=== PATIENT | male | born 1975 | race Caucasian/White ===

== ENCOUNTER 2016-07-22 12:22 | Emergency (ER) | payer OTHER ==
[~2016-07-22] VITALS: Ht 167.6 cm; Wt 60.8 kg
[~2016-07-22 12:22] MED LIST: ADV250/50 INH; ALENDRONATE SOD70 M2 PO; ATIVAN1 MG PO; ATIVAN2 MG PO; BUPROPION HCL150 M1 PO; CIPRO500 MG PO; CLINDAMYCIN HC300 MG PO; COL100 PO; COLACE100 MG PO; COUMADIN10 MG PO; COUMADIN2.5 MG PO; COUMADIN4 MG PO; COUMADIN5 MG PO; COUMADIN7.5 MG PO; DIL100 PO; DILANTIN100 MG PO; FLE10 PO; GABAPENTIN400 M1 PO; GABAPENTIN600 M1 PO; HYDROCHLOROTH12.5 M2 PO; IMO2 PO; INS5050 SC; INSR SC; INSULIN HUMA100 U/M1 SC; LAC PO; LANTI SC; LANTUS SOLOS100 U/M1 SC; LANTUS SOLOS100 U/M1 SQ; LEVAQUIN500 MG PO; LEVAQUIN750 MG PO; LEVEMIR FLEX100 U/ML SC; LORAZEPAM2 MG PO; MEN'S MULTIVITA1 TAB PO; METOPROLOL SUCC50 M2 PO; NEURONTIN600 MG PO; NIC21 TD; NOR10T PO; NORCO1 TA2 PO; OMEPRAZOLE DR20 M1 PO; OXY20 PO; PER5 PO; PRILOSEC20 MG PO; PRINIVIL10 MG PO; PROVENTIL0.09 MG/A1 INH; PULMICORT180 MCG/Ac INH; REGLAN10 MG PO; SIMVASTATIN20 M1 PO; TRAMADOL HCL50 MG PO; VIAGRA50 MG PO; ZESTRIL20 MG PO; ZOCOR20 MG PO
[2016-07-22 14:00] VITALS: BP 118/54
[2016-07-22 14:19] LABS: BASOPHIL % 0.5 % (0-2); RED CELL DISTRIBUTION WIDTH 13.7 % (11.5-14.5)
[2016-07-22 14:23] LABS: CALCIUM 9.4 mg/dL (8.5-10.1); CARBON DIOXIDE 30.9 mmol/L (21-32); CHLORIDE SERUM 98 mmol/L (98-107); CREATININE SERUM 0.9 mg/dL (0.7-1.3); GFR1 > 60 mL/min; GLUCOSE SERUM 334 mg/dL (74-106); POTASSIUM SERUM 4.9 mmol/L (3.5-5.1); SODIUM SERUM 135 mmol/L (136-145)
[2016-07-22 14:24] LABS: PLATELET COUNT 407 x10^3mcL (130-400)
[2016-07-22 14:27] LABS: ALBUMIN 3.9 g/dL (3.4-5.0); ALKALINE PHOSPHATASE 95 U/L (46-116); ALT/SGPT 34 U/L (16-63); AMYLASE 29 U/L (25-115); AST/SGOT 9 U/L (15-37); BILIRUBIN TOTAL 0.3 mg/dL (0.20-1.00); LIPASE 75 IU/L (73-393); TOTAL PROTEIN, SERUM 6.9 g/dL (6.4-8.2)
== END 2016-07-22 14:00 | disposition home or self-care (01) ==
LOC: ED 12:22
PROVIDERS: Emergency Medicine
DX: R07.9 Chest pain, unspecified (principal); J98.01 Acute bronchospasm; E11.9 Type 2 diabetes mellitus without complications; I10 Essential (primary) hypertension; E78.00 Pure hypercholesterolemia, unspecified; G40.909 Epilepsy, unspecified, not intractable, without status epilepticus; F17.210 Nicotine dependence, cigarettes, uncomplicated; Z71.6 Tobacco abuse counseling; Z88.5 Allergy status to narcotic agent
CPT/HCPCS: 80307; 85378; 99406; G0480

== ENCOUNTER 2016-08-07 07:24 | Inpatient (IN) | payer OTHER ==
[~2016-08-07] VITALS: Ht 167.6 cm; Wt 56.4 kg
[2016-08-07 07:52] LABS: microscopic required? NO
[2016-08-07 08:05] LABS: UA SPECIFIC GRAVITY 1.015 (1.005-1.035); urine erythrocyte NEGATIVE (NEGATIVE)
[2016-08-07 08:09] LABS: CALCIUM 9.4 mg/dL (8.5-10.1); CARBON DIOXIDE 17.8 mmol/L (21-32); CHLORIDE SERUM 94 mmol/L (98-107); GFR1 > 60 mL/min; GLUCOSE SERUM 443 mg/dL (74-106); SODIUM SERUM 129 mmol/L (136-145)
[2016-08-07 08:21] LABS: POTASSIUM SERUM 5.6 mmol/L (3.5-5.1)
[2016-08-07 08:27] LABS: ALBUMIN 4.5 g/dL (3.4-5.0); BILIRUBIN DIRECT 0.08 mg/dL (0.0-0.2); BILIRUBIN TOTAL 0.52 mg/dL (0.20-1.00); TOTAL PROTEIN, SERUM 7.6 g/dL (6.4-8.2)
[2016-08-07 08:29] LABS: PLATELET COUNT 296 x10^3mcL (130-400); RED CELL DISTRIBUTION WIDTH 13.8 % (11.5-14.5)
[2016-08-07 10:00] LABS: T3 TOTAL 1.02 ng/mL
[2016-08-07 10:01] LABS: FREE T4 0.99 ng/dL (0.76-1.46); FREE THYROXINE INDEX 3.1 ug/dL (1.4-4.5); T4(THYROXINE) 8.6 ug/dL (4.7-13.3)
[2016-08-07 10:21] LABS: CHOLESTEROL/HDL RATIO 3.7
[2016-08-07 10:25] LABS: BAND NEUTROPHIL 5 % (0-10); SEGMENTED NEUTROPHILS 94 % (37-75); rbc morphology (normal/abnorm) NORMAL (NORMAL)
[2016-08-07 10:26] LABS: PLATELET MORPHOLOGY PLATELETS INCREASED
[2016-08-07 10:29] VITALS: BP 112/65
[2016-08-07 10:30] LABS: AMPHETAMINE QUAL UR NONE DETECTED (NEG <=1000)
[2016-08-07 12:14] LABS: CALCIUM 8.3 mg/dL (8.5-10.1); CARBON DIOXIDE 28.4 mmol/L (21-32); CHLORIDE SERUM 104 mmol/L (98-107); CREATININE SERUM 1.1 mg/dL (0.7-1.3); GFR1 > 60 mL/min; GLUCOSE SERUM 118 mg/dL (74-106); POTASSIUM SERUM 4.8 mmol/L (3.5-5.1); SODIUM SERUM 140 mmol/L (136-145)
[2016-08-07 12:24] LABS: MAGNESIUM 1.5 mg/dL (1.8-2.4); PHOSPHOROUS 3.1 mg/dL (2.5-4.9)
[2016-08-07 15:05] VITALS: BP 111/64
[2016-08-07 16:49] LABS: CALCIUM 7.3 mg/dL (8.5-10.1); CARBON DIOXIDE 26.4 mmol/L (21-32); CHLORIDE SERUM 105 mmol/L (98-107); CREATININE SERUM 0.8 mg/dL (0.7-1.3); GFR1 > 60 mL/min; GLUCOSE SERUM 205 mg/dL (74-106); POTASSIUM SERUM 4.1 mmol/L (3.5-5.1); SODIUM SERUM 138 mmol/L (136-145)
[2016-08-07 18:12] LABS: MAGNESIUM 1.3 mg/dL (1.8-2.4); PHOSPHOROUS 2.8 mg/dL (2.5-4.9)
[2016-08-07 20:00] VITALS: BP 101/61
[2016-08-08 00:09] VITALS: BP 102/58
[2016-08-08 04:20] VITALS: BP 109/61
[2016-08-08 05:37] LABS: BASOPHIL % 0.4 % (0-2); PLATELET COUNT 247 x10^3mcL (130-400); RED CELL DISTRIBUTION WIDTH 13.9 % (11.5-14.5)
[2016-08-08 05:58] LABS: CALCIUM 7.2 mg/dL (8.5-10.1); CARBON DIOXIDE 26.5 mmol/L (21-32); CHLORIDE SERUM 110 mmol/L (98-107); CREATININE SERUM 0.7 mg/dL (0.7-1.3); GFR1 > 60 mL/min; GLUCOSE SERUM 142 mg/dL (74-106); MAGNESIUM 1.7 mg/dL (1.8-2.4); PHOSPHOROUS 2.8 mg/dL (2.5-4.9); POTASSIUM SERUM 4.3 mmol/L (3.5-5.1); SODIUM SERUM 143 mmol/L (136-145)
[2016-08-08 10:44] VITALS: BP 102/64
[2016-08-08 15:20] VITALS: BP 105/64
[2016-08-08 17:40] VITALS: BP 125/79
[2016-08-08 21:21] VITALS: BP 141/79
[2016-08-09 05:32] VITALS: BP 144/86
[2016-08-09 06:19] LABS: BASOPHIL % 0.4 % (0-2); PLATELET COUNT 238 x10^3mcL (130-400)
[2016-08-09 06:41] LABS: CALCIUM 7.4 mg/dL (8.5-10.1); CARBON DIOXIDE 27.4 mmol/L (21-32); CHLORIDE SERUM 111 mmol/L (98-107); CREATININE SERUM 0.5 mg/dL (0.7-1.3); GFR1 > 60 mL/min; GLUCOSE SERUM 70 mg/dL (74-106); MAGNESIUM 1.7 mg/dL (1.8-2.4); PHOSPHOROUS 2.8 mg/dL (2.5-4.9); POTASSIUM SERUM 3.7 mmol/L (3.5-5.1); SODIUM SERUM 145 mmol/L (136-145)
[2016-08-09 09:09] VITALS: BP 141/84
[2016-08-09] MEDS ORDERED: ALENDRONATE SOD70 M2 PO (11:31)
[2016-08-09] MEDS ORDERED: ZESTRIL20 MG PO (11:36)
[2016-08-09] MEDS ORDERED: COUMADIN5 MG PO (11:37)
[2016-08-09] MEDS ORDERED: PRILOSEC OTC20 M1 PO (11:39)
[2016-08-09] MEDS ORDERED: HYDROCHLOROTH12.5 M2 PO (11:39)
[2016-08-09] MEDS ORDERED: NEURONTIN600 MG PO (11:40)
[2016-08-09] MEDS ORDERED: LORAZEPAM2 MG PO (11:40)
[2016-08-09 13:12] VITALS: BP 125/77
[2016-08-09] MEDS ORDERED: INSR SC (13:14)
[2016-08-09 13:16] VITALS: BP 125/77
== END 2016-08-09 14:34 | disposition home or self-care (01) | DRG 420 ==
LOC: ED 07:24 → IC 09:07 → DU 08-08 10:38
PROVIDERS: Emergency Medicine; ADMIT Family Medicine
PROC: 05HM33Z Insertion of Infusion Device into Right Internal Jugular Vein, Percutaneous Approach (ICD-10-PCS; principal; 2016-08-07)
DX: E13.10 Other specified diabetes mellitus with ketoacidosis without coma (principal); E87.8 Other disorders of electrolyte and fluid balance, not elsewhere classified; Z89.611 Acquired absence of right leg above knee; E83.42 Hypomagnesemia; E87.1 Hypo-osmolality and hyponatremia; E87.5 Hyperkalemia; J44.9 Chronic obstructive pulmonary disease, unspecified; K21.9 Gastro-esophageal reflux disease without esophagitis; E78.2 Mixed hyperlipidemia; G40.909 Epilepsy, unspecified, not intractable, without status epilepticus; Z96.641 Presence of right artificial hip joint; F17.210 Nicotine dependence, cigarettes, uncomplicated; Z89.512 Acquired absence of left leg below knee; Z79.01 Long term (current) use of anticoagulants; Z91.14 Patient's other noncompliance with medication regimen; Z86.718 Personal history of other venous thrombosis and embolism; K52.9 Noninfective gastroenteritis and colitis, unspecified; E11.21 Type 2 diabetes mellitus with diabetic nephropathy; E11.51 Type 2 diabetes mellitus with diabetic peripheral angiopathy without gangrene
CPT/HCPCS: 36556; 36600; 80307; 82962; 83880; 84439; 90732; J1170; J1642; J1815; J1885; J2060; J2270; J2405; J3475; J3490; J7030; J7613; Q0092

== ENCOUNTER 2017-11-25 08:37 | Emergency (ER) | payer OTHER ==
[~2017-11-25] VITALS: Ht 170.2 cm; Wt 59.4 kg
[~2017-11-25 08:37] MED LIST changes: +PRILOSEC OTC20 M1 PO
[2017-11-25 08:52] VITALS: BP 127/76; Ht 170.2 cm; Wt 59.4 kg
== END 2017-11-25 09:33 | disposition home or self-care (01) ==
LOC: ED 08:37
DX: S05.02XA Injury of conjunctiva and corneal abrasion without foreign body, left eye, initial encounter (principal); J44.9 Chronic obstructive pulmonary disease, unspecified; I10 Essential (primary) hypertension; Z86.73 Personal history of transient ischemic attack (TIA), and cerebral infarction without residual deficits; E11.9 Type 2 diabetes mellitus without complications; E78.00 Pure hypercholesterolemia, unspecified; Z88.1 Allergy status to other antibiotic agents; X58.XXXA Exposure to other specified factors, initial encounter; Y93.89 Activity, other specified; Y92.89 Other specified places as the place of occurrence of the external cause; Y99.8 Other external cause status

== ENCOUNTER 2017-12-15 19:55 | Emergency (ER) | payer OTHER ==
[~2017-12-15] VITALS: Ht 170.2 cm; Wt 59.4 kg
[2017-12-15 20:04] VITALS: Ht 170.2 cm; Wt 59.4 kg
[2017-12-15 22:25] VITALS: BP 111/67
== END 2017-12-15 22:25 | disposition home or self-care (01) ==
LOC: ED 19:55
DX: S70.01XA Contusion of right hip, initial encounter (principal); J44.9 Chronic obstructive pulmonary disease, unspecified; I10 Essential (primary) hypertension; E11.9 Type 2 diabetes mellitus without complications; E78.00 Pure hypercholesterolemia, unspecified; Z86.73 Personal history of transient ischemic attack (TIA), and cerebral infarction without residual deficits; Z86.69 Personal history of other diseases of the nervous system and sense organs; Z88.1 Allergy status to other antibiotic agents; W01.0XXA Fall on same level from slipping, tripping and stumbling without subsequent striking against object, initial encounter; Y93.89 Activity, other specified; Y92.096 Garden or yard of other non-institutional residence as the place of occurrence of the external cause; Y99.8 Other external cause status
CPT/HCPCS: 82962; J1885

== ENCOUNTER 2018-11-29 14:12 | Emergency (ER) | payer OTHER ==
[2018-11-29 14:24] VITALS: BP 114/60
== END 2018-11-29 17:31 | disposition home or self-care (01) ==
LOC: ED 14:12
DX: S61.200A Unspecified open wound of right index finger without damage to nail, initial encounter (principal); X58.XXXA Exposure to other specified factors, initial encounter; Y93.89 Activity, other specified; Y92.89 Other specified places as the place of occurrence of the external cause; Y99.8 Other external cause status
CPT/HCPCS: J2001

== ENCOUNTER 2018-12-24 20:30 | Inpatient (IN) | payer OTHER ==
[~2018-12-24] VITALS: Ht 175.3 cm; Wt 51.1 kg
[2018-12-24 20:37] VITALS: Ht 175.3 cm; Wt 51.1 kg
--- NOTE | 2018-12-24 20:37 | NUR ---
PT BROUGHT TO ED BY [facility]. PT IS AAOX4, RESP E/U, TACHYPNIC RR 24. PT IS VOICING GENERALIZED DISCOMFORT AND BILATERAL SHOULDER PAIN. PT C/O EXCESSIVE THIRST, GEN BODY ACHES, LOSS OF APPETITE, N/V/D X2 DAYS. EDIC REPORTS FROM HOME HAS HAD SYMPTOMS OF V/D/N WITH GEN BODY ACHES X2 DAYS. PT HAS HX DM WITH BLE AMPUTATIONS (RIGHT AKA AND LEFT BKA). PT STOPPED TAKING INSULIN X2 DAYS (REGULAR AND LANTUS, UNKNOWN DOSAGES) DUE TO LACK OF APPETITE. UPON BS ASSESSMENT AT HOME YESTERDAY BS 200'S. EN ROUTE BS PER MEDIC 500. PT GIVEN ZOFRAN 4MG EN ROUTE. PT CONNECTED TO MONITOR. DR Lee AT BEDSIDE FOR MSE.
--- NOTE | 2018-12-24 20:40 | NUR ---
PT HAD VOMITING EPISODE X1. APPROX 25CC. NO BLOOD NOTED.
--- NOTE | 2018-12-24 21:07 | NUR ---
PT ATTEMPTING TO VOID X2. UNABLE TO. DENIES PAIN. WILL NOTIFY DR Thompson
--- NOTE | 2018-12-24 21:07 | NUR ---
LAB AT BEDSIDE.
--- NOTE | 2018-12-24 21:19 | NUR ---
PT CALM AND COOPERATIVE AT THIS TIME. NO LONGER SHOUTING "I AM IN PAIN, IT HURTS, I NEED MEDICATION. MY SHOULDER HURTS. WHY DO YOU KEEP ASKING ME QUESTIONS?" DR Rosa SETHI.
[2018-12-24 21:37] LABS: PLATELET COUNT 360 x10^3mcL (130-400); RED CELL DISTRIBUTION WIDTH 13.4 % (11.5-14.5)
[2018-12-24 22:03] LABS: ALBUMIN 3.6 g/dL (3.4-5.0); BILIRUBIN TOTAL 0.44 mg/dL (0.20-1.00); CALCIUM 8.4 mg/dL (8.5-10.1); CREATININE SERUM 1.4 mg/dL (0.7-1.3); TOTAL PROTEIN, SERUM 6.6 g/dL (6.4-8.2)
[2018-12-24 22:06] LABS: CARBON DIOXIDE 7.8 mmol/L (21-32); POTASSIUM SERUM 5.8 mmol/L (3.5-5.1)
[2018-12-24 22:07] LABS: BAND NEUTROPHIL 12 % (0-10); BASOPHIL 0 % (0-2); MONOCYTE 1 % (0-7); SEGMENTED NEUTROPHILS 75 % (37-75); rbc morphology (normal/abnorm) ABNORMAL (NORMAL)
[2018-12-24 22:08] LABS: PLATELET MORPHOLOGY LARGE PLATELET SEEN
--- NOTE | 2018-12-24 22:17 | NUR ---
PT SELF REMOVED IV TO RIGHT WRIST AT THIS TIME. PT ADVISED IMPORTANCE OF IV SITE. WILL PLACE NEW IV.
--- NOTE | 2018-12-24 22:50 | NUR ---
MULTIPLE ATTEMPTS OF PERPHIRAL IV ACCESS, NO ACCESS OBTAINED. PT STS "THEY USUALLY GIVE ME A C-LINE, BECAUSE MY VEINS ARE SO BAD." DR Lee AWARE. JOSEPH RN AT BEDSIDE TO ASSESS FOR POSSIBLE EJ PLACEMENT. PT HAD VOMITING EPISODE OF APPROX 200CC.
--- NOTE | 2018-12-24 22:53 | NUR ---
PT GIVEN 4MG REGLAN IM AND 4MG MORPHINE IM AT THIS TIME PER DR Lee VERBAL ORDER.
--- NOTE | 2018-12-24 22:54 | NUR ---
JOSEPH RN VERBALIZES NO SAFE PLACEMENT FOR EJ AT THIS TIME. DR Rosa SETHI.
--- NOTE | 2018-12-24 23:01 | NUR ---
DR Lee AT BEDSIDE FOR US GUIDED PIV PLACEMENT.
--- NOTE | 2018-12-24 23:24 | NUR ---
POC GLUCOSE 479.
--- NOTE | 2018-12-24 23:25 | NUR ---
IV ZOFRAN NOT COMPATIBLE WITH IV REGULAR INSULIN. 1 PIV SITE TO RAC AT THIS TIME. DR Lee AWARE. GIVEN ORDER TO INFUSE ZOSYN FIRST AND THEN TO BEGIN INSULIN GTT.
--- NOTE | 2018-12-24 23:36 | NUR ---
PHARMACY CONTACTED AT THIS TIME REGARDING IV VANCO. PHARMACIST TO BRING MEDICATION TO NURSING STATION.
[2018-12-24 23:42] LABS: CHOLESTEROL/HDL RATIO 3.2
[2018-12-24 23:52] LABS: microscopic required? NO
[2018-12-24 23:58] LABS: urine erythrocyte NEGATIVE (NEGATIVE)
[2018-12-25 00:07] LABS: AMPHETAMINE QUAL UR NONE DETECTED (See below)
--- NOTE | 2018-12-25 00:14 | NUR ---
DR Lee AT BEDSIDE FOR US GUIDED PIV PLACEMENT.
--- NOTE | 2018-12-25 00:30 | NUR ---
INSULIN GTT STARTED AT THIS TIME AT 7U/HR ORDERED. SEE EMAR. VERIFIED WITH NASIM LOZANO.
--- NOTE | 2018-12-25 00:47 | NUR ---
REPORT CALLED AND GIVEN TO NASIM VILLALOBOS. PT TO GO TO ICU BED 1.
--- NOTE | 2018-12-25 01:06 | NUR ---
PT EN ROUTE TO ICU AT THIS TIME.
--- NOTE | 2018-12-25 01:10 | NUR ---
RECEIVED PT FROM ER VIA GURNEY ACCOMPANIED BY RN AND EMT. PT TRANSFERRED TO ICU BED 1 WITH NO COMPLICATIONS. PT IS A/OX4. SPEECH IS CLEAR. ABLE TO MAKE NEEDS KNOWN. DENIES ANAYA. PUPILS WITH BRISK REACTION TO LIGHT, 3 MM BILAT. EENT FREE OF DISCHAREG. ORAL MUCOSA PINK AND MOIST. NO JVD NOTED. TRACHEA MIDLINE. PT'S BREATHING IS E/U ON RA. LUNGS SOUND CLEAR BILAT. SYMMETRICAL CHEST EXPANSION NOTED. S1/S2 HEART SOUNDS AUSCULTATED. CHEST WALL EQUAL AND SYMMETRICAL. DENIES ANY CP/DIZZINESS. HR 125, BP 131/72, MAP 91, RR 18, SPO2 99%. MOD PULSES NOTED TO BUE. CAP REFILL < 3 SECS. SKIN IS WARM AND DRY. NO EDEMA NOTED. RAC AND EDMAR IV IN PLACE WITH NO S/S OF INFILTRATION NOTED. RECEIVED PT INFUSING NS @ 250 ML/HR, VANCO INFUSING @ 166 ML/HR AND INSULIN GTT @ 7 UNITS/HR. INSULIN GTT CHANGED AT THIS TIME TO 0.1 UNITS/KG/HR PER DKA PROTOCOL. GENERALIZED WEAKNESS. PT NOTED WITH RIGHT AKA AND L BKA. NO JOINT SWELLING/DEFORMITY NOTED. ACTIVE FULL ROM. PT USES A WHEELCHAIR AT BASELINE. ABD IS SOFT, FLAT, NONTENDER TO PALPATION. BOWEL SOUNDS ACTIVE X4 QUADRANTS. PT STS HE HAD A LOOSE BROWN BM YESTERDAY. PT C/O ACHING 8/10 ABD PAIN. PT VOIDS FREELY VIA URINAL, YELLOW COLORED URINE. NO SCROTAL EDEMA OR PENILE DISCHARGE NOTED. SKIN IS INTACT. PT ABLE TO REPOSITION SELF INDEPENDENTLY. PT ORIENTED TO ROOM AND USE OF CALL LIGHT. BED IN LOW POSITION. CALL LIGHT IN REACH. WILL CONT TO MONITOR
[2018-12-25 01:21] LABS: CALCIUM 7.1 mg/dL (8.5-10.1); CARBON DIOXIDE 10.1 mmol/L (21-32); CHLORIDE SERUM 101 mmol/L (98-107); CREATININE SERUM 1.3 mg/dL (0.7-1.3); GFR1 > 60 mL/min; MAGNESIUM 1.3 mg/dL (1.8-2.4); PHOSPHOROUS 4.2 mg/dL (2.5-4.9); SODIUM SERUM 136 mmol/L (136-145)
[2018-12-25 01:23] LABS: GLUCOSE SERUM 497 mg/dL (74-106); POTASSIUM SERUM 6.4 mmol/L (3.5-5.1)
--- NOTE | 2018-12-25 01:27 | NUR ---
PT C/O ACHING ABD PAIN RATED 8/10. PT MEDICATED WITH NORCO PER EMAR.
[2018-12-25 01:29] VITALS: BP 131/72
--- NOTE | 2018-12-25 01:30 | NUR ---
DR. MAI MADE AWARE OF CRITICAL LAB RESULT: POTASSIUM 6.4 AND GLUCOSE 497.
--- NOTE | 2018-12-25 02:16 | NUR ---
DR. MAI AT BEDSIDE. UPDATED ON PT'S CURRENT STATUS
--- NOTE | 2018-12-25 02:39 | NUR ---
CNC SPECIALIST AT BEDSIDE FOR LACTIC BLOOD DRAW
[2018-12-25 03:10] VITALS: BP 109/63
[2018-12-25 04:22] LABS: PLATELET COUNT 348 x10^3mcL (130-400); RED CELL DISTRIBUTION WIDTH 13.1 % (11.5-14.5)
[2018-12-25 04:32] LABS: CALCIUM 6.7 mg/dL (8.5-10.1); CARBON DIOXIDE 17.9 mmol/L (21-32); CHLORIDE SERUM 107 mmol/L (98-107); CREATININE SERUM 1.1 mg/dL (0.7-1.3); GFR1 > 60 mL/min; GLUCOSE SERUM 300 mg/dL (74-106); MAGNESIUM 2.3 mg/dL (1.8-2.4); PHOSPHOROUS 2.8 mg/dL (2.5-4.9); POTASSIUM SERUM 4.5 mmol/L (3.5-5.1); SODIUM SERUM 138 mmol/L (136-145)
--- NOTE | 2018-12-25 04:54 | NUR ---
PT C/O ACHING ABD PAIN RATED 9/10. PT MEDICATED WITH MORPHINE PER EMAR.
[2018-12-25 05:24] LABS: BAND NEUTROPHIL 12 % (0-10); MONOCYTE 1 % (0-7); SEGMENTED NEUTROPHILS 75 % (37-75); rbc morphology (normal/abnorm) ABNORMAL (NORMAL)
[2018-12-25 05:25] LABS: PLATELET MORPHOLOGY PLATELETS NORMAL
--- NOTE | 2018-12-25 05:30 | NUR ---
PT TRANSFERRED TO CT SCAN AT THIS TIME ACCOMPANIED BY DARIO ROUSE AND X-RAY TECH. PT CONNECTED TO FULL HEAD CHARRER AND CONT PULSE OX
--- NOTE | 2018-12-25 05:45 | NUR ---
PT RETURNED FROM CT SCAN AT THIS TIME. NO S/S OF ACUTE DISTRESS NOTED. PT RECONNECTED TO FULL CHIEF ESTIMATOR AND CONT PULSE OX. WILL CONT TO MONITOR
--- NOTE | 2018-12-25 07:01 | NUR ---
BS 191. NS TURNED OFF AT THIS TIME. D5 1/2 NS INITIATED AT THIS TIME @ 150 ML/HR. INSULIN GTT TITRATED TO 0.05 UNITS/KG/HR.
--- NOTE | 2018-12-25 07:10 | NUR ---
REPORT GIVEN TO AGENCY NASIM SERRANO. ALL QUESTIONS/CONCERNS ADDRESSED. ENDORSING ALL CARE.
[2018-12-25 08:00] VITALS: BP 104/66
--- NOTE | 2018-12-25 08:00 | NUR ---
INITIAL SHIFT ASSESSMENT DONE (SEE ASSESSMENT PART). AAOX4. NO C/O PAIN OR DYSPNEA. O2 SAT 96-99% ON RA. ST ON MONITOR. SBP IN 100'S-110'S. NO ECTOPY NOTED. HOB ELEVATED. UPDATED OF PLAN OF CARE. WILL CONTINUE TO MONITOR.
--- NOTE | 2018-12-25 08:10 | NUR ---
GIVEN BREAKFAST TRAY.
--- NOTE | 2018-12-25 08:15 | NUR ---
C/O SEVERE ABDOMINAL PAIN. GIVEN MORPHINE SULFATE 1 MG IVP. WILL CONTINUE TO MONITOR.
[2018-12-25 08:19] LABS: CALCIUM 6.5 mg/dL (8.5-10.1); CARBON DIOXIDE 21.9 mmol/L (21-32); CHLORIDE SERUM 110 mmol/L (98-107); CREATININE SERUM 0.9 mg/dL (0.7-1.3); GFR1 > 60 mL/min; GLUCOSE SERUM 193 mg/dL (74-106); PHOSPHOROUS 2.3 mg/dL (2.5-4.9); POTASSIUM SERUM 4.6 mmol/L (3.5-5.1); SODIUM SERUM 140 mmol/L (136-145)
--- NOTE | 2018-12-25 09:00 | NUR ---
IV CATH ON RIGHT AC AND LEFT UA ARE BOTH OCCLUDED. INSERTED A NEW 20G IV CATH ON LEFT HAND WITH GOOD BLOOD RETURN. TEGADERM DRESSING IS THEN PLACED. RIGHT AC AND LEFT UA IV CATH ARE THEN D/C'D, TIPS INTACT. OCCLUSIVE DRESSINGS ARE THEN PLACED. TOLERATED THE PROCEDURE WELL. NO ACTIVE BLEEDING NOTED. WILL CONTINUEN TO MONITOR.
--- NOTE | 2018-12-25 09:47 | NUR ---
C/O MODERATE HIP PAIN. GIVEN NORCO 1 TAB PO. WILL CONTINUE TO MONITOR.
--- NOTE | 2018-12-25 10:00 | NUR ---
RESTING IN BED. NO C/O PAIN OR DYSPNEA. O2 SAT 96-98%. ST ON MONITOR. SBP IN 100'S-120'S. NO ECTOPY NOTED. HOB ELEVATED. WILL CONTINUE TO MONITOR.
[2018-12-25 12:00] VITALS: BP 109/69
--- NOTE | 2018-12-25 12:00 | NUR ---
REASSESSMENT DONE. AAOX4. NO C/O PAIN OR DYSPNEA. O2 SAT 97-98% ON RA. SR ON MONITOR. SBP IN 90'S-100'S. NO ECTOPY NOTED. HOB ELEVATED. UPDATED OF PLAN OF CARE. WILL CONTINUE TO MONITOR.
--- NOTE | 2018-12-25 12:15 | NUR ---
GIVEN LUNCH TRAY.
--- NOTE | 2018-12-25 12:22 | NUR ---
SPOKE WITH DR ANGELES AND REPORTED THAT PATIENT TAKING ATIVAN 2 MG PO BID AT HOME. PATIENT REQUESTING MEDICATION. OKAY TO RESTART PER DR ANGELES.
[2018-12-25 12:37] LABS: CALCIUM 6.8 mg/dL (8.5-10.1); CARBON DIOXIDE 22.6 mmol/L (21-32); CHLORIDE SERUM 109 mmol/L (98-107); CREATININE SERUM 0.9 mg/dL (0.7-1.3); GFR1 > 60 mL/min; GLUCOSE SERUM 183 mg/dL (74-106); MAGNESIUM 1.9 mg/dL (1.8-2.4); PHOSPHOROUS 2.4 mg/dL (2.5-4.9); POTASSIUM SERUM 4.5 mmol/L (3.5-5.1); SODIUM SERUM 140 mmol/L (136-145)
--- NOTE | 2018-12-25 12:56 | NUR ---
SPOKE WITH DR ANGELES AND REPORTED PATIENT OUT OF DKA. AWAITING NEW ORDERS.
--- NOTE | 2018-12-25 13:55 | NUR ---
GIVEN LANTUS 10 UNITS SQ AND D/C THE INSULIN DRIP PER NEW MD ORDER.
--- NOTE | 2018-12-25 13:58 | NUR ---
C/O PAIN ON ABDOMEN AND HIP AREA. GIVEN MORPHINE SULFATE 1 MG IVP. WILL CONTINUE TO MONITOR.
--- NOTE | 2018-12-25 14:25 | NUR ---
SLEEPING BUT EASILY AROUSABLE. NO C/O PAIN OR DYSPNEA. O2 SAT 98-99% ON RA. SR ON MONITOR. SBP IN 90'S-100. NO ECTOPY NOTED. HOB ELEVATED. WILL CONTINUE TO MONITOR.
--- NOTE | 2018-12-25 15:15 | NUR ---
RECEIVED RPEORT FROM ZACH ROUSE IN ICU. AWAITING PATIENT ARRIVAL TO FLOOR.
--- NOTE | 2018-12-25 15:18 | NUR ---
REPORT GIVEN TO INSPECTING AND TESTING LEAD HAND, NAISM COX.
--- NOTE | 2018-12-25 15:35 | NUR ---
TRANSFER TO TELEMETRY UNIT ROOM 209-B IN SECOND FLOOR BY BED WITH TELEBOX. ACCOMPANIED BY TRANSPORTER JOHN.
--- NOTE | 2018-12-25 15:43 | NUR ---
ASSUMED CARE OF PATIENT FROM ZACH ROUSE. RECEIVED PATIENT TO FLOOR VIA BED. PT TRANSFERRED TO [facility] BED W/O ASSISTANCE. RT AKA AND LT BKA NOTED. PT ON ROOM AIR. NO C/O SOB AND NO DISTRESS NOTED. VITALS TAKEN AND STABLE (SEE DOCUMENTATION). IV TO RT HAND IS PATENT AND INTACT. NO REDNESS OR PAIN. TELE # 16 APPLIED. PT REPORTS ABDOMINAL SORENESS FROM VOMITING. PATIENT ORIENTED TO ROOM AND CALL LIGHT. CALL LIGHT LEFT IN REACH AND BED IN LOW POSITION. ALL NEEDS MET.
--- NOTE | 2018-12-25 16:51 | NUR ---
IN TO SEE PATIENT TO CHECK GLUCOSE,AND ADMINISTER PAIN MEDICATION AND COUMADIN (SEE eMAR).
--- NOTE | 2018-12-25 19:05 | NUR ---
REPORT RECEIVED FROM DAY SHIFT RN. PATIENT WAS SEEN AND IS RESTING COMFORTABLY IN BED. NO DISTRESS NOTED. BREATHING EVEN AND UNLABORED ON ROOM AIR. NO SOB OR RESP DISTRESS NOTED. DENIES CHEST PAIN/PRESSURE. C/O 9/10 ABD CRAMPING PAIN. WILL MEDICATE. IV TO THE RH. SALINE LOCK. PATENT AND INTACT. NO REDNESS OR SWELLING NOTED. LEFT BKA AND RIGHT AKA. COMFORT AND SAFETY MEASURES IN PLACE. BED IS LOCKED AND IN THE LOWEST POSITION. SIDE RAILS UP X2. CALL LIGHT IS WITHIN REACH. WILL CONTINUE TO MONITOR.
--- NOTE | 2018-12-25 19:30 | NUR ---
REPORT GIVEN TO HUA ROUSE. PATIENT RESTING COMFORTABLY IN BED WITH ALL NEEDS MET. ALL QUESTIONS AND CONCERNS ADDRESSED. ALL CARES ENDORSED.
--- NOTE | 2018-12-25 20:00 | NUR ---
C/O 9/10 ABD CRAMPING PAIN. MEDICATED W/ PRN MORPHINE PRESCRIBED. EDUCATED PATIENT ON MED AND POSS SIDE EFFECTS. VERBALIZED UNDERSTANDING. WILL CONTINUE TO MONITOR AND REASSESS PAIN LEVEL. CALL LIGHT IS WITHIN REACH.
[2018-12-25 20:42] VITALS: BP 112/63
--- NOTE | 2018-12-25 23:03 | NUR ---
C/O 9/10 ABD PAIN. PRN NORCO GIVEN PRESCRIBED. VANCO ADMINISTERED IVPB WELL. EDUCATED PATIENT ON MEDICATIONS AND TO REPORT POSS SIDE EFFECTS SUCH SOB AND ITCHINESS. VERBALIZED UNDERSTANDING. SAFETY MEASURES IN PLACE. CALL LIGHT IS WITHIN REACH. WILL CONTINUE TO MONITOR.
--- NOTE | 2018-12-26 00:38 | NUR ---
RESTING IN BED WITH EYES CLOSED. NO DISTRESS NOTED. BREATHING EVEN AND UNLABORED ON ROOM AIR. NO S/S OF PAIN NOTED. EVEN CHEST RISE AND FALL. SAFETY MEASURES IN PLACE. CALL LIGHT IS WITHIN REACH. WILL CONTINUE TO MONITOR.
--- NOTE | 2018-12-26 02:39 | NUR ---
RESTING IN BED WITH EYES CLOSED. NO DISTRESS NOTED. NO S/S OF PAIN NOTED. BREATHING EVEN AND UNLABORED ON ROOM AIR. NO SOB NOTED. CALL LIGHT IS WITHIN REACH. WILL CONTINUE TO MONITOR.
--- NOTE | 2018-12-26 03:40 | NUR ---
PATIENT REPORTS FEELING THAT HIS BS IS LOW. RANDOM BS CHECK DONE. BS 68 AND REPEATED 82. APPLE JUICE GIVEN X2 W/ 1 PACKET OF SUGAR. WILL RECHECK AND CONTINUE TO MONITOR.
--- NOTE | 2018-12-26 04:07 | NUR ---
C/O 10 ABD CRAMPING PAIN. PRN MORPHINE WAS ADMINISTERED PRESCRIBED. EDUCATION ON MED GIVEN. BS RECHECKED. BS IS 146. NO DISTRESS NOTED. BREATHING EVEN AND UNLABORED. CALL LIGHT IS WITHIN REACH. WILL CONTINUE TO MONITOR.
--- NOTE | 2018-12-26 05:36 | NUR ---
C/O 8/10 ABD PAIN. PRN NORCO ADMINISTERED PRESCRIBED. EDUCATION ON MED GIVEN. VERBALIZED UNDERSTANDING. NO DISTRESS NOTED. BREATHING EVEN AND UNLABORED. SAFETY MEASURES IN PLACE. WILL ENDORSE CARE TO ONCOMING RN.
[2018-12-26 05:46] VITALS: BP 128/75
--- NOTE | 2018-12-26 06:16 | NUR ---
RESTED IN INTERVALS THROUGHOUT THE NIGHT. NO DISTRESS NOTED. BREATHING EVEN AND UNLABORED ON ROOM AIR. NO SOB. DENIES CHEST PAIN. C/O ABD CRAMPING X4. MEDICATED WITH MORPHINE X2 AND NORCO X2 WITH GOOD RELIEF. IV TO THE RH. PATENT AND INTACT. NO REDNESS OR SWELLING NOTED. SAFETY MEASURES IN PLACE. SEIZURE PRECAUTIONS IN PLACE. NO SEIZURES NOTED. CALL LIGHT IS WITHIN REACH. WILL ENDORSE CARE TO DAY SHIFT RN.
[2018-12-26 06:22] LABS: PLATELET COUNT 319 x10^3mcL (130-400); RED CELL DISTRIBUTION WIDTH 13.9 % (11.5-14.5)
[2018-12-26 06:31] LABS: CALCIUM 7.4 mg/dL (8.5-10.1); CHLORIDE SERUM 115 mmol/L (98-107); CREATININE SERUM 0.6 mg/dL (0.7-1.3); GFR1 > 60 mL/min; GLUCOSE SERUM 126 mg/dL (74-106); MAGNESIUM 1.7 mg/dL (1.8-2.4); PHOSPHOROUS 2.6 mg/dL (2.5-4.9); POTASSIUM SERUM 4.7 mmol/L (3.5-5.1); SODIUM SERUM 146 mmol/L (136-145)
[2018-12-26 08:05] LABS: BAND NEUTROPHIL 11 % (0-10); BASOPHIL 0 % (0-2); MONOCYTE 6 % (0-7); SEGMENTED NEUTROPHILS 74 % (37-75); rbc morphology (normal/abnorm) ABNORMAL (NORMAL)
[2018-12-26 08:35] VITALS: BP 122/72
[2018-12-26 13:41] VITALS: BP 152/87
--- NOTE | 2018-12-26 14:08 | NUR ---
IN TO SEE PATIENT AND ASSESS NEEDS AFTER LUNCH. PATIENT SITTING COMFORTABLY IN BED WITH FAMILY AT BEDSIDE. ALL NEEDS MET.
--- NOTE | 2018-12-26 16:22 | NUR ---
RECEIVED CALL FROM PHARMACY TO REQUEST CONTINUATIION OF COUMADIN. CONSULTED WITH CRUZ CARMONA. CRUZ ORDERED COUMADIN 5MG PO FOR 1700.
[2018-12-26 17:05] VITALS: BP 153/63
--- NOTE | 2018-12-26 19:20 | NUR ---
RECEIVED PT IN BED WATCHING TV. HE IS ALERT,ORIENTED X4. NO SOB ON ROOM AIR. BOWEL SOUNDS ACTIVE. PT HAS NO C/O PAIN AT THISTIME. W/ RTAKA AND LTBKA. W HL TO RT HAND INTACT. CALL LIGHT W/IN REACH.
--- NOTE | 2018-12-26 19:43 | NUR ---
REPORT GIVEN TO ZINA ROUSE. PATIENT RESTING IN BED WITH ALL NEEDS MET. ALL QUESTIONS AND CONCERNS ADDRESSED. ALL CARES ENDORSED.
[2018-12-26 21:24] VITALS: BP 140/84
--- NOTE | 2018-12-26 22:13 | NUR ---
PT C/O ABDL PAIN 12/22. MORPHINE SULFATE 2 MG IV GIVEN.
--- NOTE | 2018-12-27 05:09 | NUR ---
PT SLEPT AT LONG INTERVALS. HE WAS MEDICATED FOR ABDL PAIN X2. NO C/O N/V. IV HL TO LT HAND INTACT AND PATENT. ALL NEEDS ATTENDED TO.
[2018-12-27 05:13] VITALS: BP 130/78
--- NOTE | 2018-12-27 06:12 | NUR ---
PT C/O ABDL PAIN 12/22 AND REQUESTED FOR MORPHINE. PT MEDICATED W/ MORPHINE SULFATE 1 MG IV.
[2018-12-27 06:28] LABS: CALCIUM 7.4 mg/dL (8.5-10.1); CARBON DIOXIDE 27.6 mmol/L (21-32); CHLORIDE SERUM 107 mmol/L (98-107); CREATININE SERUM 0.5 mg/dL (0.7-1.3); GFR1 > 60 mL/min; GLUCOSE SERUM 243 mg/dL (74-106); MAGNESIUM 1.4 mg/dL (1.8-2.4); POTASSIUM SERUM 4.6 mmol/L (3.5-5.1); SODIUM SERUM 141 mmol/L (136-145)
[2018-12-27 07:14] LABS: BASOPHIL % 0.2 % (0-2); PLATELET COUNT 293 x10^3mcL (130-400); RED CELL DISTRIBUTION WIDTH 13.9 % (11.5-14.5)
--- NOTE | 2018-12-27 08:00 | NUR ---
SHIFT ASSESSMENT DONE. PATIENT A/A/OX4; CLEAR SPEECH. TELE#16; SR; HR= 76. BREATHING SOUND CLEAR LORA. O2 SAT 94% ON RA. STATED ABD PAIN ON AND OFF. ASKED NORCO AND MORPHINE ALTERNATED. DENIED PAIN BRAXTON. TOLERATED CCHO DIET BREAKFAST. NO N/V. HAD BROWN LOOSE BM THIS AM. RT AKA AND LT BKA. ABLE TO REPOSITION SELF IN BED. ABLE TO USE BSC W/ MIN ASSIST. IVHL'D TO L HAND. IV SITE CLEAN. CALL LIGHT IN REACH.
[2018-12-27 08:05] VITALS: BP 132/82
--- NOTE | 2018-12-27 12:08 | NUR ---
Intervention/RDN Recommendation(s): 1. Recommend continue on CCHO diet as tolerated.
--- NOTE | 2018-12-27 12:08 | NUR ---
Initial Nutrition Assessment- Dx: abdominal pain and vomiting PMHx: DM, COPD, HTN, hyperlipidemia, anxiety, diabetic nephropathy, atherosclerosis, rt AKA, lt BKA, hx of recurrent DVT, seizure, tobacco abuse. PSHx: rt AKA, lt BKA, IVC filter placement in rt groin, rt hip total arthroplasty. Labs: (12/27/18) Na 141, K 4.6, Glu 276, BUN 8.0, Cr 0.5 L, A1c 10.3 H, H/H 11.8/36. Meds: Ativan, Colace, D50%, flagyl, humulin R, lantus, Levaquin, Lipitor, morphine sulfate, norco, Prilosec, reglan, sodium chl, vancomycin, Zofran, coumadin Diet: [facility] PO Intakes: (12/25) L: 75%, D: 100%, (12/26) L: 75%, D: 100%; avg intakes x 4 meals: 87.5%. This provides ~1497 kcal and 98 gm protein, which meets 97% estimated kcal needs and 100% estimated protein needs; adequate. Ht: 175.26 cm/69 inches/5'9" - Pt noted with lower leg amputations Wt: 51.1 kg/112 pounds BMI: 19.5 kg/m2 (adj for amputations) IBW: 160 pounds/73 kg %IBW: 70% UBW: 120 pounds Age: 43 Food Allergies: NKFA Skin: Ervin 19 Edema: none noted GI: Last BM 12/27/18 x 1 Pt admitted with dx: DKA 2/2 acute colitis vs gastroenteritis, sepsis 2/2 acute colitis vs infectious gastroenteritis, DMOOC, hyperkalemia, hypomagenesemia, rt AKA, lt BKA with hx recurrent DVT, hx dyslipidemia, hx HTN, hx seizure disorder. Per Physician Progress Note, Pt c/o abdominal pain. Pt continues on IV Levaquin and PO flagyl. RDN visited with Pt. Pt was in a good mood and receptive to RDN's questions. Pt reports a good appetite, denies GI s/s. Pt noted to be missing teeth but denies chewing difficulty. Pt reports having a difficult time with DM diet and insulin management. He was previously signed up to attend one of [place] education [place] offered [place] [facility] [place] and could not attend. Pt is very motivated to learn more about diabetic diet and is eager to make changes in diet at home. He has a caregiver who cooks for him. Caregiver cooks "pretty much whatever [he] wants." He says he eats mostly meat and carbohydrates, but not much vegetables. He does not eat much, spends most of his time drinking coffee and smoking cigarettes. RDN provided education on Carb Counting, Diabetes MyPlate plating system. Pt verbalizes understanding and will try to include more vegetables and whole grains and fish into his diet. RDN also reviewed Coumadin/vit K/dark green leafy vegetables interaction; Pt verbalizes understanding. Nursing Trigger - NVD > 3 days, poor PO intakes > 3 days Problem with: N: no V: no D: no C: no Problems with: Chewing: no Swallowing: no Current appetite: good Recent wt changes: none Vitamin/Supplement: MVI Special Diet at Home: regular Physical activity: none Nutrition education given (specify specific nutrition education and handout given): [id number] "Carbohydrate Counting and Meal Planning," "Living with Diabetes Mellitus" DM education class lidia. Food-drug interactions? Coumadin-vit K Education given? yes Estimated Nutritional Needs Based on actual body weight of 51 kg. Energy: 1076-8014 kcal/d (30-35 kcal/kg for sepsis) Protein: 51-61 gm/d (1-1.2 gm/kg for sepsis) Fluid: 7096-4971 mL/d (1 mL/kcal) or per MD. Nutrition Diagnosis 1. Impaired nutrient utilization related to endocrine dysfunction as evidenced by Glu 276, A1c 10.3 on 12/27/18. Intervention/RDN Recommendation(s): 1. Recommend continue on CCHO diet as tolerated. Monitor/Evaluate Goal: Intake via PO intakes to meet at least 75% of estimated needs with acceptable tolerance within 3-5 days. Monitor: PO intakes and/or nutrition support tolerance, Labs, GI function, Skin integrity, Weights. F/U in 3-5 days as moderate risk (12/30-)
[2018-12-27 12:30] VITALS: BP 157/88
--- NOTE | 2018-12-27 12:30 | NUR ---
MAG LEVEL 1.4: MAG RIDER 4 GM IVPB PER ORDER.
[2018-12-27 16:59] VITALS: BP 128/83
--- NOTE | 2018-12-27 18:22 | NUR ---
CONDITION STABLE, C/O ABD PAIN ON AND OFF. ASKED MORPHINE 1MG IVP X2 AND NORCO 7.5/325 PO X2 THIS SHIFT. TOLERATED CCHO DIET; NO N/V; HAD A LARGE BROWN LOOSE BM X1 THIS AM. NO BLOOD AND MUCUS SEEN. VOID LARGE AMOUNT URINE VIA URINAL, EXT 2400 CC. RT AKA AND LT BKA. SAFETY PRECAUTION IN PLACE. ENDORSED CARE TO NOC NURSE.
--- NOTE | 2018-12-27 19:15 | NUR ---
RECEIVED PT IN BED AWAKE AND RESTING QUIETLY. HE IS ALERT,ORIENTED X4. NO SOB ON ROOM AIR. BOWEL SOUNDS ACTIVE. PT C/O ABDL PAIN 12/22 AND REQUESTING FOR NORCO. PT STATED HE HAD LOOSE BM X2 TODAY. W/ HL TO LT HAND INTACT AND PATENT. CALL LIGHT W/IN REACH.
--- NOTE | 2018-12-27 19:25 | NUR ---
PT MEDICATED W/ NORCO 7.5/325 MG PO FOR C/O ABDL PAIN 12/22.
[2018-12-27 21:15] VITALS: BP 147/88
--- NOTE | 2018-12-28 00:35 | NUR ---
PT APPEARS TO BE SLEEPING COMFORTABLY.
--- NOTE | 2018-12-28 03:50 | NUR ---
IV TO LT HAND ACCIDENTALLY CAME OUT PER PT. CATHETER INTACT. STARTED NEW IV G22 ON THE LTFA. PT TOLERATED PROCEDURE WELL.
--- NOTE | 2018-12-28 04:15 | NUR ---
PT C/O ABDL PAIN 12/22. MORPHINE SULFATE 1 MG IV GIVEN.
[2018-12-28 04:40] VITALS: BP 131/83
--- NOTE | 2018-12-28 05:08 | NUR ---
PT SLEPT AT LONG INTERVALS. HE WAS MEDICATED FOR C/O ABDL PAIN X2. NO N/V. PT HAD BM X1 ,SOFT BROWN AND NO GROSS BLOOD NOTED. NO N/V. PT VOIDING LARGE AMOUNT. IV SITE TO LTFA W/ NO S/S OF INFILTRATION. ALL NEEDS ATTENDED TO.
[2018-12-28 06:34] LABS: BASOPHIL % 0.2 % (0-2); PLATELET COUNT 326 x10^3mcL (130-400); RED CELL DISTRIBUTION WIDTH 13.8 % (11.5-14.5)
[2018-12-28 06:52] LABS: CARBON DIOXIDE 29.3 mmol/L (21-32); CHLORIDE SERUM 106 mmol/L (98-107); CREATININE SERUM 0.6 mg/dL (0.7-1.3); GFR1 > 60 mL/min; GLUCOSE SERUM 178 mg/dL (74-106); POTASSIUM SERUM 5.1 mmol/L (3.5-5.1); SODIUM SERUM 141 mmol/L (136-145)
--- NOTE | 2018-12-28 07:39 | NUR ---
A+OX4, NO RESPRIATORY DISTRESS NOTED, SZ PRECAUTIONS, TELE 16, PULSES MODERATE AND EQUAL LORA, LUNG SOUNDS CTA, TOLERATING RA, BOWEL SOUNDS ACTIVE, VOIDING FREELY, WC AND PROSTHESIS AT BEDSIDE, SKIN INTACT, IV IN LFA SALINE LOCKED, SITE WNL.
--- NOTE | 2018-12-28 09:08 | NUR ---
PT RESTING IN BED, NO RESPRIATORY DISTRESS NOTED, CALL LIGHT WITHIN REACH.
[2018-12-28 09:24] VITALS: BP 126/79
--- NOTE | 2018-12-28 09:35 | NUR ---
PT COMPLAINING OF 8/10 ABD PAIN, NORCO PO GIVEN, CALL LIGHT WITHIN REACH.
--- NOTE | 2018-12-28 11:24 | NUR ---
PT RESTING IN BED, NO RESPRIATORY DISTRESS NOTED, CALL LIGHT WITHIN REACH.
--- NOTE | 2018-12-28 13:16 | NUR ---
PT RESTING IN BED, NO RESPRIATORY DISTRESS NOTED, COMPLAINING OF ABD PAIN 11/21, REQUESTING NORCO PO, NORCO PO GIVEN, CALL LIGHT WITHIN REACH.
[2018-12-28 13:30] VITALS: BP 118/75
[2018-12-28] MEDS ORDERED: LEVAQUIN750 MG PO (13:32)
[2018-12-28] MEDS ORDERED: FLAGYL500 MG PO (13:32)
[2018-12-28 14:16] VITALS: BP 135/84
--- NOTE | 2018-12-28 14:38 | NUR ---
PT GIVEN DC INSTRUCTIONS INCLUDING PRESCRIPTIONS AND VERBALIZED UNDERSTANDING. IV REMOVED FROM LFA WITH CATHETER INTACT, NO ERYTHEMA OR SWELLING TO SITE, GAUZE AND TAPE PLACED ON SITE.
--- NOTE | 2018-12-28 14:45 | NUR ---
PT OFF THE UNIT VIA WC WITH ALL BELONGINGS ESCORTED BY INSULATION WORKER FURNACE INSTALLER AND FAMILY.
== END 2018-12-28 14:40 | disposition home or self-care (01) | DRG 720 ==
LOC: ED 20:30 → IC 23:13 → DU 12-25 15:35
PROVIDERS: Emergency Medicine; ADMIT Internal Medicine
DX: A41.9 Sepsis, unspecified organism (principal); E10.10 Type 1 diabetes mellitus with ketoacidosis without coma; E10.21 Type 1 diabetes mellitus with diabetic nephropathy; E10.51 Type 1 diabetes mellitus with diabetic peripheral angiopathy without gangrene; E83.42 Hypomagnesemia; E87.5 Hyperkalemia; I70.209 Unspecified atherosclerosis of native arteries of extremities, unspecified extremity; E78.5 Hyperlipidemia, unspecified; E87.1 Hypo-osmolality and hyponatremia; E86.0 Dehydration; G40.909 Epilepsy, unspecified, not intractable, without status epilepticus; A09 Infectious gastroenteritis and colitis, unspecified; M81.0 Age-related osteoporosis without current pathological fracture; F17.210 Nicotine dependence, cigarettes, uncomplicated; J44.9 Chronic obstructive pulmonary disease, unspecified; E78.00 Pure hypercholesterolemia, unspecified; Z96.641 Presence of right artificial hip joint; I10 Essential (primary) hypertension; Z99.3 Dependence on wheelchair; Z89.611 Acquired absence of right leg above knee; Z79.4 Long term (current) use of insulin; Z68.22 Body mass index [BMI] 22.0-22.9, adult; Z89.512 Acquired absence of left leg below knee; Z79.01 Long term (current) use of anticoagulants; Z86.718 Personal history of other venous thrombosis and embolism; Z88.1 Allergy status to other antibiotic agents; Z86.73 Personal history of transient ischemic attack (TIA), and cerebral infarction without residual deficits; Z82.49 Family history of ischemic heart disease and other diseases of the circulatory system; Z83.3 Family history of diabetes mellitus; Z80.9 Family history of malignant neoplasm, unspecified; Z72.89 Other problems related to lifestyle; Z79.899 Other long term (current) drug therapy
CPT/HCPCS: 82962; 83880; 87046; 87046-59; G0378; J1815; J1885; J1956; J2270; J2405; J2543; J2765; J3370; J3475; J3490; J7030; J7040; J7050; Q0092

== ENCOUNTER 2019-05-14 09:08 | Inpatient (IN) | payer OTHER ==
[~2019-05-14] VITALS: Ht 167.6 cm; Wt 50.3 kg
[~2019-05-14 09:08] MED LIST changes: +FLAGYL500 MG PO
[2019-05-14 09:30] VITALS: Ht 167.6 cm; Wt 50.3 kg
[2019-05-14 10:42] LABS: microscopic required? NO
[2019-05-14 11:34] LABS: BASOPHIL % 0.5 % (0-2); PLATELET COUNT 347 x10^3mcL (130-400); RED CELL DISTRIBUTION WIDTH 14.3 % (11.5-14.5)
[2019-05-14 11:56] LABS: CALCIUM 8.5 mg/dL (8.5-10.1); CARBON DIOXIDE 27.4 mmol/L (21-32); CHLORIDE SERUM 99 mmol/L (98-107); CREATININE SERUM 0.7 mg/dL (0.7-1.3); GFR1 > 60 mL/min; GLUCOSE SERUM 259 mg/dL (74-106); POTASSIUM SERUM 4.1 mmol/L (3.5-5.1); SODIUM SERUM 135 mmol/L (136-145)
[2019-05-14 12:08] LABS: ALBUMIN 3.4 g/dL (3.4-5.0); ALKALINE PHOSPHATASE 99 U/L (46-116); ALT/SGPT 43 U/L (16-63); AST/SGOT 12 U/L (15-37); BILIRUBIN TOTAL 0.3 mg/dL (0.20-1.00); CHOLESTEROL 183 mg/dL (<200); HDL CHOLESTEROL 57 mg/dL (40-60); LIPASE 48 IU/L (73-393); T4(THYROXINE) 5.6 ug/dL (4.7-13.3); TOTAL PROTEIN, SERUM 6.4 g/dL (6.4-8.2)
[2019-05-14 12:20] LABS: urine erythrocyte NEGATIVE (NEGATIVE)
[2019-05-14 12:37] LABS: AMPHETAMINE QUAL UR NONE DETECTED (See below)
[2019-05-14 15:20] VITALS: BP 103/64
[2019-05-14 22:43] VITALS: BP 119/77
[2019-05-15 05:41] VITALS: BP 131/76
[2019-05-15 06:56] LABS: BASOPHIL % 0.6 % (0-2); PLATELET COUNT 336 x10^3mcL (130-400)
[2019-05-15 07:10] LABS: CALCIUM 8.4 mg/dL (8.5-10.1); CARBON DIOXIDE 27.6 mmol/L (21-32); CHLORIDE SERUM 108 mmol/L (98-107); CREATININE SERUM 0.6 mg/dL (0.7-1.3); GFR1 > 60 mL/min; GLUCOSE SERUM 335 mg/dL (74-106); SODIUM SERUM 140 mmol/L (136-145)
[2019-05-15 09:07] VITALS: BP 130/79
[2019-05-15 12:30] VITALS: BP 133/80
[2019-05-15 17:45] VITALS: BP 144/80
[2019-05-15 19:00] VITALS: BP 135/80
[2019-05-16 05:55] VITALS: BP 120/71
[2019-05-16 09:22] VITALS: BP 128/81
[2019-05-16] MEDS ORDERED: CLEOCIN HCL150 MG PO (09:58)
[2019-05-16 11:26] VITALS: BP 128/81
== END 2019-05-16 12:15 | disposition home or self-care (01) | DRG 349 ==
LOC: ED 09:08 → DU 12:53 → MU 05-15 20:21
PROVIDERS: Emergency Medicine; ADMIT Family Medicine
DX: T87.43 Infection of amputation stump, right lower extremity (principal); K31.84 Gastroparesis; E11.43 Type 2 diabetes mellitus with diabetic autonomic (poly)neuropathy; E11.65 Type 2 diabetes mellitus with hyperglycemia; Z89.612 Acquired absence of left leg above knee; E78.00 Pure hypercholesterolemia, unspecified; I10 Essential (primary) hypertension; Y83.8 Other surgical procedures as the cause of abnormal reaction of the patient, or of later complication, without mention of misadventure at the time of the procedure; J44.9 Chronic obstructive pulmonary disease, unspecified; G40.909 Epilepsy, unspecified, not intractable, without status epilepticus; Z86.718 Personal history of other venous thrombosis and embolism; Z88.1 Allergy status to other antibiotic agents; Z82.49 Family history of ischemic heart disease and other diseases of the circulatory system; Z83.3 Family history of diabetes mellitus; Z80.9 Family history of malignant neoplasm, unspecified; Y92.098 Other place in other non-institutional residence as the place of occurrence of the external cause
CPT/HCPCS: 36600; 82962; 87046; 87046-59; 99406; G0378; J1815; J1885; J1956; J2270; J3490; J7030

== ENCOUNTER 2019-08-16 11:42 | Emergency (ER) | payer OTHER ==
[~2019-08-16] VITALS: Ht 175.3 cm; Wt 54.4 kg
[~2019-08-16 11:42] MED LIST changes: +CLEOCIN HCL150 MG PO
[2019-08-16 11:45] VITALS: Ht 175.3 cm; Wt 54.4 kg
[2019-08-16 13:48] VITALS: BP 106/72
== END 2019-08-16 13:48 | disposition home or self-care (01) ==
LOC: ED 11:42
DX: S20.211A Contusion of right front wall of thorax, initial encounter (principal); S60.221A Contusion of right hand, initial encounter; I10 Essential (primary) hypertension; E11.9 Type 2 diabetes mellitus without complications; E78.00 Pure hypercholesterolemia, unspecified; J44.9 Chronic obstructive pulmonary disease, unspecified; Z88.1 Allergy status to other antibiotic agents; W01.0XXA Fall on same level from slipping, tripping and stumbling without subsequent striking against object, initial encounter; Y93.89 Activity, other specified; Y92.89 Other specified places as the place of occurrence of the external cause; Y99.8 Other external cause status

== ENCOUNTER 2019-10-06 13:20 | Emergency (ER) | payer OTHER ==
[~2019-10-06] VITALS: Ht 172.7 cm; Wt 54.4 kg
[2019-10-06 14:02] VITALS: BP 130/64; Ht 172.7 cm; Wt 54.4 kg
[2019-10-07] MEDS ORDERED: NAPROSYN25 MG/ML (23:42)
[2019-10-07] MEDS ORDERED: BASAGLAR K100 UNIT/1 (23:42)
[2019-10-07] MEDS ORDERED: OXYCODONE H5 MG/5 ML (23:42)
[2019-10-07] MEDS ORDERED: HUMULIN R100 U/1 M1 (23:42)
[2019-10-07] MEDS ORDERED: CENTANY AT2% (23:43)
[2019-10-07] MEDS ORDERED: VITAMIN D310 MCG/1 M (23:43)
[2019-10-07] MEDS ORDERED: COU5 PO (23:43)
[2019-10-07] MEDS ORDERED: PROAIR HFA8.5 GM (23:43)
[2019-10-07] MEDS ORDERED: LISINOPRIL-HYDR1 TA3 PO (23:44)
[2019-10-07] MEDS ORDERED: ATI1 (23:44)
[2019-10-07] MEDS ORDERED: ALENDRONATE SOD70 M3 (23:48)
[2019-10-07] MEDS ORDERED: NEIGHBOR PH PO (23:48)
[2019-10-07] MEDS ORDERED: GRALISE600 MG PO (23:48)
[2019-10-07] MEDS ORDERED: NOVAPLUS F0.05 MG/Ac (23:49)
[2019-10-07] MEDS ORDERED: ZUPLENZ4 MG PO (23:49)
[2019-10-07] MEDS ORDERED: PHENYTOIN 50 MG PO (23:49)
[2019-10-07] MEDS ORDERED: ROBAFEN100 MG/5 M (23:50)
[2019-10-07] MEDS ORDERED: GRALISE600 M2 PO (23:50)
[2019-10-07] MEDS ORDERED: ACID REDUCER20 MG PO (23:50)
[2019-10-07] MEDS ORDERED: SIMVASTATIN5 M2 (23:50)
[2019-10-07] MEDS ORDERED: TOPROL XL50 MG PO (23:51)
== END 2019-10-06 16:05 | disposition left against medical advice (07) ==
LOC: ED 13:20
DX: Z53.21 Procedure and treatment not carried out due to patient leaving prior to being seen by health care provider (principal)
CPT/HCPCS: 82962

== ENCOUNTER 2019-10-07 18:27 | Inpatient (IN) | payer OTHER ==
[~2019-10-07] VITALS: Ht 167.6 cm; Wt 49.9 kg
[2019-10-07 19:20] LABS: BASOPHIL % 0.4 % (0-2); PLATELET COUNT 365 x10^3mcL (130-400); RED CELL DISTRIBUTION WIDTH 13.9 % (11.5-14.5)
[2019-10-07 19:45] LABS: ALKALINE PHOSPHATASE 81 U/L (46-116); ALT/SGPT 32 U/L (16-63); AST/SGOT 8 U/L (15-37); BILIRUBIN TOTAL 0.91 mg/dL (0.20-1.00); C REACTIVE PROTEIN 1.2 mg/dL (<=0.9); CALCIUM 7.9 mg/dL (8.5-10.1); CARBON DIOXIDE 20.9 mmol/L (21-32); CHLORIDE SERUM 92 mmol/L (98-107); CREATININE SERUM 1.2 mg/dL (0.7-1.3); GFR1 > 60 mL/min; POTASSIUM SERUM 4.7 mmol/L (3.5-5.1); URIC ACID 4.1 mg/dL (3.5-7.2)
[2019-10-07 19:49] LABS: ALBUMIN 3.3 g/dL (3.4-5.0)
[2019-10-07 19:50] LABS: SODIUM SERUM 122 mmol/L (136-145)
[2019-10-07 19:51] LABS: GLUCOSE SERUM 667 mg/dL (74-106)
[2019-10-07 20:18] LABS: ERYTHROCYTE SED RATE 5 mm/hr (0-15)
[2019-10-07 22:44] LABS: CALCIUM 7.8 mg/dL (8.5-10.1); CARBON DIOXIDE 25.9 mmol/L (21-32); CHLORIDE SERUM 103 mmol/L (98-107); CREATININE SERUM 0.8 mg/dL (0.7-1.3); GFR1 > 60 mL/min; GLUCOSE SERUM 79 mg/dL (74-106); POTASSIUM SERUM 4.3 mmol/L (3.5-5.1); SODIUM SERUM 134 mmol/L (136-145)
[2019-10-07 22:48] LABS: ALBUMIN 3.2 g/dL (3.4-5.0); ALKALINE PHOSPHATASE 78 U/L (46-116); ALT/SGPT 33 U/L (16-63); AST/SGOT 10 U/L (15-37); TOTAL PROTEIN, SERUM 5.8 g/dL (6.4-8.2)
[2019-10-07 22:50] LABS: microscopic required? NO
[2019-10-07 22:56] LABS: UA SPECIFIC GRAVITY 1.025 (1.005-1.035); urine erythrocyte NEGATIVE (NEGATIVE)
[2019-10-07 23:14] LABS: AMPHETAMINE QUAL UR NONE DETECTED (See below)
[2019-10-07] MEDS ORDERED: NAPROSYN25 MG/ML (23:42)
[2019-10-07] MEDS ORDERED: OXYCODONE H5 MG/5 ML (23:42)
[2019-10-07] MEDS ORDERED: BASAGLAR K100 UNIT/1 (23:42)
[2019-10-07] MEDS ORDERED: HUMULIN R100 U/1 M1 (23:42)
[2019-10-07] MEDS ORDERED: VITAMIN D310 MCG/1 M (23:43)
[2019-10-07] MEDS ORDERED: CENTANY AT2% (23:43)
[2019-10-07] MEDS ORDERED: COU5 PO (23:43)
[2019-10-07] MEDS ORDERED: PROAIR HFA8.5 GM (23:43)
[2019-10-07] MEDS ORDERED: LISINOPRIL-HYDR1 TA3 PO (23:44)
[2019-10-07] MEDS ORDERED: ATI1 (23:44)
[2019-10-07] MEDS ORDERED: NEIGHBOR PH PO (23:48)
[2019-10-07] MEDS ORDERED: GRALISE600 MG PO (23:48)
[2019-10-07] MEDS ORDERED: ALENDRONATE SOD70 M3 (23:48)
[2019-10-07] MEDS ORDERED: PHENYTOIN 50 MG PO (23:49)
[2019-10-07] MEDS ORDERED: NOVAPLUS F0.05 MG/Ac (23:49)
[2019-10-07] MEDS ORDERED: ZUPLENZ4 MG PO (23:49)
[2019-10-07] MEDS ORDERED: SIMVASTATIN5 M2 (23:50)
[2019-10-07] MEDS ORDERED: GRALISE600 M2 PO (23:50)
[2019-10-07] MEDS ORDERED: ACID REDUCER20 MG PO (23:50)
[2019-10-07] MEDS ORDERED: ROBAFEN100 MG/5 M (23:50)
[2019-10-07] MEDS ORDERED: TOPROL XL50 MG PO (23:51)
[2019-10-08 00:25] VITALS: BP 116/69
[2019-10-08 03:04] VITALS: BP 116/69
[2019-10-08 03:08] LABS: CHOLESTEROL 166 mg/dL (<200); CHOLESTEROL/HDL RATIO 3.5; HDL CHOLESTEROL 48 mg/dL (40-60)
[2019-10-08 03:58] LABS: TRIGLYCERIDES 1046 mg/dL (<150)
[2019-10-08 05:30] VITALS: BP 116/71
[2019-10-08 07:43] LABS: BASOPHIL % 0.4 % (0-2); PLATELET COUNT 364 x10^3mcL (130-400); RED CELL DISTRIBUTION WIDTH 13.5 % (11.5-14.5)
[2019-10-08 08:37] LABS: CALCIUM 7.6 mg/dL (8.5-10.1); CHLORIDE SERUM 103 mmol/L (98-107); CREATININE SERUM 0.7 mg/dL (0.7-1.3); GFR1 > 60 mL/min; MAGNESIUM 1.6 mg/dL (1.8-2.4); PHOSPHOROUS 2.7 mg/dL (2.5-4.9); POTASSIUM SERUM 4.8 mmol/L (3.5-5.1)
[2019-10-08 08:42] VITALS: BP 117/71
[2019-10-08 08:53] LABS: CARBON DIOXIDE 26.3 mmol/L (21-32); GLUCOSE SERUM 285 mg/dL (74-106); LIPASE 54 IU/L (73-393); SODIUM SERUM 137 mmol/L (136-145)
[2019-10-08 12:25] VITALS: BP 124/75
[2019-10-08] MEDS ORDERED: FENOFIBRATE MIC43 MG PO (12:34)
[2019-10-08 13:12] VITALS: BP 124/75
== END 2019-10-08 13:40 | disposition home or self-care (01) | DRG 349 ==
LOC: ED 18:27 → DU 22:56
PROVIDERS: Emergency Medicine; ADMIT Family Medicine; ATTEND Family Medicine
DX: T87.43 Infection of amputation stump, right lower extremity (principal); E11.51 Type 2 diabetes mellitus with diabetic peripheral angiopathy without gangrene; Z89.611 Acquired absence of right leg above knee; E11.65 Type 2 diabetes mellitus with hyperglycemia; Z88.8 Allergy status to other drugs, medicaments and biological substances; I10 Essential (primary) hypertension; J44.9 Chronic obstructive pulmonary disease, unspecified; Z89.512 Acquired absence of left leg below knee; Z96.641 Presence of right artificial hip joint; Z83.3 Family history of diabetes mellitus; Z82.49 Family history of ischemic heart disease and other diseases of the circulatory system; F17.200 Nicotine dependence, unspecified, uncomplicated; Y83.8 Other surgical procedures as the cause of abnormal reaction of the patient, or of later complication, without mention of misadventure at the time of the procedure; E78.00 Pure hypercholesterolemia, unspecified; E44.1 Mild protein-calorie malnutrition; D63.8 Anemia in other chronic diseases classified elsewhere; E87.1 Hypo-osmolality and hyponatremia; E83.51 Hypocalcemia; Z68.1 Body mass index [BMI] 19.9 or less, adult
CPT/HCPCS: 36600; 82947; 82962; 97116-GP; G0378; J1200; J1815; J2405; J2543; J2765; J3010; J3370; J3490; Q0092; Q0163

== ENCOUNTER 2019-12-10 09:04 | Emergency (ER) | payer OTHER ==
[~2019-12-10] VITALS: Ht 167.6 cm; Wt 49.9 kg
[~2019-12-10 09:04] MED LIST changes: +ACID REDUCER20 MG PO; +ALENDRONATE SOD70 M3; +ATI1; +BASAGLAR K100 UNIT/1; +CENTANY AT2%; +COU5 PO; +FENOFIBRATE MIC43 MG PO; +GRALISE600 M2 PO; +GRALISE600 MG PO; +HUMULIN R100 U/1 M1; +LISINOPRIL-HYDR1 TA3 PO; +NAPROSYN25 MG/ML; +NEIGHBOR PH PO; +NOVAPLUS F0.05 MG/Ac; +OXYCODONE H5 MG/5 ML; +PHENYTOIN 50 MG PO; +PROAIR HFA8.5 GM; +ROBAFEN100 MG/5 M; +SIMVASTATIN5 M2; +TOPROL XL50 MG PO; +VITAMIN D310 MCG/1 M; +ZUPLENZ4 MG PO
[2019-12-10 09:11] VITALS: Ht 167.6 cm; Wt 49.9 kg
[2019-12-10 10:32] LABS: BASOPHIL % 0.7 % (0-2); PLATELET COUNT 363 x10^3mcL (130-400); RED CELL DISTRIBUTION WIDTH 13.4 % (11.5-14.5)
[2019-12-10 11:20] LABS: CALCIUM 8.4 mg/dL (8.5-10.1); CARBON DIOXIDE 30.7 mmol/L (21-32); CHLORIDE SERUM 94 mmol/L (98-107); CREATININE SERUM 0.8 mg/dL (0.7-1.3); GFR1 > 60 mL/min; GLUCOSE SERUM 406 mg/dL (74-106); POTASSIUM SERUM 4.7 mmol/L (3.5-5.1); SODIUM SERUM 129 mmol/L (136-145)
[2019-12-10 11:25] LABS: ALBUMIN 3.4 g/dL (3.4-5.0); ALKALINE PHOSPHATASE 77 U/L (46-116); ALT/SGPT 29 U/L (16-63); AST/SGOT 14 U/L (15-37); BILIRUBIN TOTAL 0.2 mg/dL (0.20-1.00); C REACTIVE PROTEIN 0.4 mg/dL (<=0.9)
[2019-12-10 12:16] VITALS: BP 140/89
== END 2019-12-10 12:15 | disposition home or self-care (01) ==
LOC: ED 09:04
PROVIDERS: Student in an Organized Health Care Education/Training Program
DX: M79.661 Pain in right lower leg (principal); F17.210 Nicotine dependence, cigarettes, uncomplicated; E78.00 Pure hypercholesterolemia, unspecified; I10 Essential (primary) hypertension; J44.9 Chronic obstructive pulmonary disease, unspecified; Z89.511 Acquired absence of right leg below knee; Z86.73 Personal history of transient ischemic attack (TIA), and cerebral infarction without residual deficits; Z98.890 Other specified postprocedural states; Z88.1 Allergy status to other antibiotic agents; Z88.8 Allergy status to other drugs, medicaments and biological substances
CPT/HCPCS: J1885; J2270; Q0092

== ENCOUNTER 2020-01-18 12:39 | Inpatient (IN) | payer OTHER ==
[~2020-01-18] VITALS: Ht 167.6 cm; Wt 53.5 kg
[2020-01-18 13:48] LABS: BASOPHIL % 0.5 % (0-2); PLATELET COUNT 341 x10^3mcL (130-400); RED CELL DISTRIBUTION WIDTH 13.1 % (11.5-14.5)
[2020-01-18 14:13] LABS: ALBUMIN 3.6 g/dL (3.4-5.0); ALKALINE PHOSPHATASE 113 U/L (46-116); ALT/SGPT 38 U/L (16-63); AST/SGOT 17 U/L (15-37); BILIRUBIN TOTAL 0.5 mg/dL (0.20-1.00); CALCIUM 9.4 mg/dL (8.5-10.1); CARBON DIOXIDE 16.3 mmol/L (21-32); CHLORIDE SERUM 90 mmol/L (98-107); GFR1 > 60 mL/min; GLUCOSE SERUM 441 mg/dL (74-106); LIPASE 33 IU/L (73-393); TOTAL PROTEIN, SERUM 6.3 g/dL (6.4-8.2)
[2020-01-18 14:15] LABS: POTASSIUM SERUM 5.7 mmol/L (3.5-5.1); SODIUM SERUM 123 mmol/L (136-145)
[2020-01-18 20:19] LABS: CALCIUM 7.9 mg/dL (8.5-10.1); CARBON DIOXIDE 20.2 mmol/L (21-32); CHLORIDE SERUM 98 mmol/L (98-107); GFR1 > 60 mL/min; GLUCOSE SERUM 277 mg/dL (74-106); MAGNESIUM 1.5 mg/dL (1.8-2.4); PHOSPHOROUS 2.4 mg/dL (2.5-4.9); POTASSIUM SERUM 4.6 mmol/L (3.5-5.1); SODIUM SERUM 131 mmol/L (136-145)
[2020-01-18 20:30] VITALS: BP 103/47
[2020-01-18 21:55] VITALS: Ht 167.6 cm; Wt 53.5 kg
[2020-01-18 23:12] VITALS: BP 103/53
[2020-01-19] VITALS: BP 85/46
[2020-01-19 01:23] LABS: CALCIUM 7.5 mg/dL (8.5-10.1); CARBON DIOXIDE 28.4 mmol/L (21-32); CHLORIDE SERUM 106 mmol/L (98-107); CREATININE SERUM 0.9 mg/dL (0.7-1.3); GFR1 > 60 mL/min; GLUCOSE SERUM 118 mg/dL (74-106); MAGNESIUM 1.6 mg/dL (1.8-2.4); PHOSPHOROUS 2.6 mg/dL (2.5-4.9); POTASSIUM SERUM 4.4 mmol/L (3.5-5.1); SODIUM SERUM 138 mmol/L (136-145)
[2020-01-19 04:00] VITALS: BP 84/56
[2020-01-19 05:18] LABS: CALCIUM 7.7 mg/dL (8.5-10.1); CARBON DIOXIDE 26.4 mmol/L (21-32); CHLORIDE SERUM 108 mmol/L (98-107); CREATININE SERUM 0.7 mg/dL (0.7-1.3); GFR1 > 60 mL/min; GLUCOSE SERUM 120 mg/dL (74-106); MAGNESIUM 1.6 mg/dL (1.8-2.4); POTASSIUM SERUM 4.2 mmol/L (3.5-5.1); SODIUM SERUM 140 mmol/L (136-145)
[2020-01-19 06:00] VITALS: BP 122/68
[2020-01-19 08:00] VITALS: BP 107/80
[2020-01-19 11:09] VITALS: BP 107/80
[2020-01-19 12:00] VITALS: BP 108/72
== END 2020-01-19 12:20 | disposition home or self-care (01) | DRG 420 ==
LOC: ED 12:39 → IC 16:46
PROVIDERS: Emergency Medicine; ADMIT Internal Medicine; ATTEND Internal Medicine
DX: E11.10 Type 2 diabetes mellitus with ketoacidosis without coma (principal); Z89.611 Acquired absence of right leg above knee; E78.00 Pure hypercholesterolemia, unspecified; Z88.8 Allergy status to other drugs, medicaments and biological substances; I10 Essential (primary) hypertension; J44.9 Chronic obstructive pulmonary disease, unspecified; Z86.73 Personal history of transient ischemic attack (TIA), and cerebral infarction without residual deficits; Z89.512 Acquired absence of left leg below knee; Z96.641 Presence of right artificial hip joint; E78.5 Hyperlipidemia, unspecified
CPT/HCPCS: 82962; G0378; J1644; J1815; J2270; J2405; J7030; Q0092; Q9967